=== PATIENT | female | born 1975 | race Caucasian/White ===

== ENCOUNTER 2022-05-21 14:50 | Outpatient (CLI) | payer BC, SELFPAY | END 2022-05-21 14:51 | disposition home or self-care (01) | LOC: NFLDREF 05-23 15:25 | PROVIDERS: PCP Family Medicine; Referring Provider Family Medicine; Visit Provider Obstetrics & Gynecology | DX: R53.83 Other fatigue (principal); F52.0 Hypoactive sexual desire disorder; R68.89 Other general symptoms and signs | CPT/HCPCS: 84270; 84402; 84403; 84443 ==

== ENCOUNTER 2023-03-13 07:37 | Outpatient (CLI) | payer BC, SELFPAY ==
--- NOTE | 2023-03-13 07:45 | CRLHL7_ITS ---
For Patients: As a result of the Cures Act, medical imaging exams and procedure reports are released immediately into your electronic medical record. You may view this report before your referring provider. If you have questions, please contact your health care provider. BILATERAL SCREENING MAMMOGRAM WITH COMPUTER-AIDED DETECTION AND TOMOSYNTHESIS TECHNIQUE: CC and MLO views were obtained. These mammographic images have been obtained using full-field digital technique. These mammographic images were interpreted with the benefit of computer-aided detection. Breast Tomosynthesis was used in this interpretation. COMPARISON FILM: 07/02/21, 01/01/21, 09/21/19. FINDINGS: The breasts are almost entirely fatty IMPRESSION: There is no radiographic evidence for malignancy. ASSESSMENT: BI-RADS Category 1: Negative RECOMMENDATION: Routine screening mammogram in 1 year. A lay language report of this examination will be provided to the patient. Efrem Pedro M.D. Diagnostic Radiologist [email or web address] Transcribed: 4:31 p.mNeeru ramirez/Dictated by: Efrem Pedro MD @ 03/18/2023 12:39:00 PM (Electronically Signed)
== END 2023-03-13 07:38 | disposition home or self-care (01) ==
LOC: MAMMO 07:39
PROVIDERS: PCP Family Medicine; Visit Provider Obstetrics & Gynecology
DX: Z12.31 Encounter for screening mammogram for malignant neoplasm of breast (principal)
CPT/HCPCS: 77063; 77067

== ENCOUNTER 2023-07-06 08:09 | Outpatient (CLI) | payer BC, SELFPAY ==
--- NOTE | 2023-07-06 08:45 | W.ANESCHARGE ---
Anesthesia Charges Start Date/Time Anesthesia Start Date: 07/06/23 Anesthesia Start Time: 08:55 Stop Date/Time Anesthesia Stop Date: 07/06/23 Anesthesia Stop Time: 09:36
--- NOTE | 2023-07-06 10:20 | W.ANESCHARGE ---
Anesthesia Charges Start Date/Time Anesthesia Start Date: 07/06/23 Anesthesia Start Time: 08:55 Stop Date/Time Anesthesia Stop Date: 07/06/23 Anesthesia Stop Time: 09:36
== END 2023-07-06 08:10 | disposition home or self-care (01) ==
LOC: OP CLINIC 08:10
PROVIDERS: PCP Family Medicine; Visit Provider Surgery
DX: Z12.11 Encounter for screening for malignant neoplasm of colon (principal); K63.5 Polyp of colon; R19.7 Diarrhea, unspecified
CPT/HCPCS: 45380; 45385; 811; 88305; J2704

== ENCOUNTER 2023-08-11 09:20 | Outpatient (CLI) | payer BC, SELFPAY ==
--- NOTE | 2023-08-11 09:45 | CRLHL7_ITS ---
For Patients: As a result of the Century Cures Act, medical imaging exams and procedure reports are released immediately into your electronic medical record. You may view this report before your referring provider. If you have questions, please contact your health care provider. DIGITAL DIAGNOSTIC BILATERAL MAMMOGRAM USING TOMOSYNTHESIS AND COMPUTER-AIDED DETECTION LEFT AXILLARY ULTRASOUND CLINICAL HISTORY: LEFT breast/axillary swelling. COMPARISON: 03/13/23, 01/01/21, 02/26/18. TECHNIQUE: Digital BILATERAL mammogram in four projections with computer-aided detection. Tomosynthesis was used in this interpretation. Real-time ultrasound imaging of LEFT breast with imaging documentation. BREAST COMPOSITION: There are areas of scattered fibroglandular density. FINDINGS: 3D CC/MLO bilateral mammogram images submitted. No suspicious masses or architectural distortion. No suspicious calcifications or adenopathy. Targeted LEFT axillary ultrasound performed. Normal subcutaneous tissues are present. No adenopathy or fluid collection. No suspicious mass. IMPRESSION: No evidence of malignancy. RECOMMENDATIONS: Annual bilateral screening mammography. Results and recommendations discussed with the patient. BI-RADS Category 2: Benign A lay language report of this examination will be provided to the patient. Dictated by Efrem Pedro MD @ 08/11/2023 10:57:36 AM jj/Dictated by: Efrem Pedro MD @ 08/11/2023 10:57:00 AM (Electronically Signed)
--- NOTE | 2023-08-11 10:15 | CRLHL7_ITS ---
For Patients: As a result of the Cures Act, medical imaging exams and procedure reports are released immediately into your electronic medical record. You may view this report before your referring provider. If you have questions, please contact your health care provider. PLEASE SEE DIGITAL DIAGNOSTIC BILATERAL MAMMOGRAM PERFORMED SAME DAY [email or web address] [email or web address]/Dictated by: Efrem Pedro MD @ 08/11/2023 11:48:00 AM (Electronically Signed)
== END 2023-08-11 09:21 | disposition home or self-care (01) ==
LOC: MAMMO 09:20
PROVIDERS: PCP Family Medicine; Visit Provider Obstetrics & Gynecology
DX: N64.4 Mastodynia (principal)
CPT/HCPCS: 76882; 77066; G0279

== ENCOUNTER 2024-01-31 09:08 | Emergency (ER) | payer BC, SELFPAY ==
--- OUTSIDE RECORDS SUMMARY | 2024-01-31 09:11 | XMS_ITS | Clinical Summary ---
Author Organization [facility] Address [place], [place] [address] Care Team Providers Care Employment Law Specialist Name Role Phone Jaison Hylton MD Primary Care Provider + [phone] Allergies No known active allergies Medications Medication Sig Dispensed Refills Start Date End Date Status albuterol HFA (PRO-AIR; VENTOLIN; PROVENTIL) 90 mcg/actuation inhalerIndications:SO B (shortness of breath) Inhale 1-2 Puffs by mouth every 4 hours if needed for Shortness of Breath 1st choice. 1 Each 1 05/28/2021 Active Active Problems No known active problems Social History Tobacco Use Types Packs/Day Years Used Date Smoking Tobacco: Former Cigarettes 0.5 10 1 - 11/30/2006 Smokeless Tobacco: Never Tobacco Cessation:Counseling Given: Yes Alcohol Use Standard Drinks/Week Comments Yes 0 (1 standard drink = 0.6 oz pur e alcohol) one drink 3-4 nights a week Social Connections Answer Date Recorded Frequency of Communication with Friends and Fami ly Not on file 05/28/2021 Sex and Gender Information Value Date Recorded Sex Assigned at Not on file Gender Identity Not on file Sexual Orientation Not on file Obstetrics History Last Filed Vital Signs Vital Sign Reading Time Taken Comments Blood Pressure 122/79 05/28/2021 1:57 PM CDT Pulse 75 05/28/2021 1:57 PM CDT Temperature 36.8 C (98.2 F) 05/28/2021 1:57 PM CDT Respiratory Rate 12 12/17/2006 2:29 PM CDT Oxygen Saturation 96% 05/28/2021 1:57 PM CDT Inhaled Oxygen Concentration - - Weight 83.6 kg (184 lb 6.4 oz) 12/17/2006 2:29 P M CDT Height - - Body Mass Index - - Plan of Treatment Health Maintenance Due Date Last Done Comments Tdap 02/05/1987 Depression screening for age 12+ 1988 HIV for age 15-65 02/05/1991 BMI (ht and wt on same day) for age 18+ 02/05/1994 Hepatitis C screening for age 18-79 02/05/1994 Tetanus booster 1996 Colonoscopy through age 75 02/05/2021 Lipids for age 45-75 02/05/2021 Mammogram for age 45-75 02/05/2021 COVID-19 vaccine series ( season) 2023 05/31/2020, 05/11/2020 Influenza for age 9-49 11/01/2023 Pap test for age 21-65 01/23/2024 , 01/22/2021, 09/18/2014, Additional history exists Pneumococcal series for age 6-64 Aged Out No longer eligible based on patient's age to complete this topic Procedures Procedure Name Priority Date/Time Associated Diagnosis Comments HPV HIGH RISK Routine 01/22/2021 9:45 AM WHITEWATER RAFTING GUIDE from Last 3 Months or Most Recently Relevant to Health Maintenance Results * HPV HIGH RISK (01/22/2021 9:45 AM WHITEWATER RAFTING GUIDE) TYPE 16 Negative Negative 01/28/2021 11:15 AM WHITEWATER RAFTING GUIDE [facility] TYPE 18 Negative Negative 01/28/2021 11:15 AM WHITEWATER RAFTING GUIDE [facility] OTHER HIGH RISK TYPES Negative Negative 01/28/2021 11:15 AM [facility] Other (Cervical/Vagina l) 01/22/2021 9:45 AM WHITEWATER RAFTING GUIDE 01/23/2021 9:47 AM WHITEWATER RAFTING GUIDE [facility]AL LAB[facility]AT[facility] - 01/28/2021 11:15 AM WHITEWATER RAFTING GUIDE HPV types 16, 18, 31, 33, 35, 39, 45, 51, 52, 56, 58, 59, 66 and 68 DNA were undetectable or below the pre-set threshold. Methodology: Helena Ihsan 4800 HPV Test Karlie Mercedes MD MICROBIOLOGY [facility] LABORATORY-CENTRAL LABORATORY [address] [place] [address], from Last 3 Months or Most Recently Relevant to Health Maintenance Care Teams Employment Law Specialist Relationship Specialty Start Date End Date Jaison Hylton MD [address] [place] [address] PCP - General 11/12/06
[2024-01-31 09:14] VITALS: BP 97/68; PULSE 99; RESP 16; TEMP 35.9; O2SAT 96; BMI 35.4
--- NOTE | 2024-01-31 09:51 | CRLHL7_ITS ---
For Patients: As a result of the Century Cures Act, medical imaging exams and procedure reports are released immediately into your electronic medical record. You may view this report before your referring provider. If you have questions, please contact your health care provider. Indication: Shortness of breath. Technique: Two view(s) of the chest. Comparison: 12/18/2022. Findings: Normal cardiomediastinal silhouette and pulmonary vasculature. Azygous lobe. Lungs are well inflated and clear. No focal consolidation, pleural effusion or pneumothorax. No acute osseous abnormality. Impression: No acute cardiopulmonary abnormality identified. Dictated by Elda Albarran MD @ 01/31/2024 10:11:15 AM (Electronically Signed)
--- NOTE | 2024-01-31 10:01 | ED.GENADULT ---
HPI - General Adult General Chief complaint: Dizziness/Vertigo Stated complaint: Possible meningitis Time Seen by Provider: 01/31/24 09:33 Source: patient Mode of arrival: ambulatory Limitations: no limitations History of Present Illness HPI narrative: 48-year-old female coming in today because she is not feeling well. Patient states that 4 days ago she started feeling unwell with cough, fatigue and fever. She states that the fever did not return after the 1st day and she thought she felt better on day 3. Then today she felt very achy. The achiness extends across her entire back into her head and neck. She has little appetite but has been trying to drink plenty of water. She denies chest pain. She is not short of breath. She has continued to cough. No abdominal pain or urinary symptoms. She denies diarrhea. She denies any skin rashes. She denies neurologic deficits. She states that today she got up to take a shower and when she was in the shower she started having tunnel vision and her vision started to black out so she called her and when her got to her she had sat down then he states that she passed out for about 20 seconds or so. When she woke up she felt tired and she just feels generally unwell. Patient takes omeprazole, control, monthly ketamine infusions. Related Data Home Medications ?Medication ?Instructions ?Recorded ?Confirmed cholecalciferol (vitamin D3) 25 25 mcg PO QDAY 05/13/22 01/31/24 mcg (1,000 unit) capsule ibuprofen 200 mg tablet (Advil) 200 mg PO Q6H PRN 05/13/22 01/31/24 ketamine 50 mg/5 mL (10 mg/mL) in 5 ml IV Q2W 12/18/22 01/31/24 sodium chlor,iso-osmotic IV syringe Previous Rx's ?Medication ?Instructions ?Recorded norethindrone 1 mg-ethinyl 1 tab PO QDAY #84 tabs 08/10/23 estradiol 20 mcg (21)-iron 75 mg (7) tablet (Loestrin Fe 03/21 (28-Day)) omeprazole 20 mg capsule,delayed 20 mg PO QDAY #30 caps 12/14/23 release albuterol sulfate 90 mcg/actuation 2 puff inhalation Q4-6H PRN 12/22/23 aerosol inhaler shortness of breath or wheezing #8.5 grams Allergies Allergy/AdvReac Type Severity Reaction Status Date / Time No Known Drug Allergies Allergy Verified 01/31/24 09:23 Review of Systems Status of ROS: Reports: 10 or more systems reviewed and unremarkable except as noted in History and below [facility] Plantar fasciitis ?M72.2 - Plantar fascial fibromatosis (ICD-10) Perimenopause ?N95.1 - Menopausal and female climacteric states (ICD-10) Hypoactive sexual desire ?F52.0 - Hypoactive sexual desire disorder (ICD-10) GERD (gastroesophageal reflux disease) ?K21.9 - Gastro-esophageal reflux disease without esophagitis (ICD-10) Posttraumatic stress disorder ?F43.10 - Post-traumatic stress disorder, unspecified (ICD-10) Pelvic floor dysfunction ?M62.89 - Other specified disorders of muscle (ICD-10) Endometriosis determined by laparoscopy (2005) ?N80.9 - Endometriosis, unspecified (ICD-10) Anxiety and depression ?F41.9 - Anxiety disorder, unspecified (ICD-10) ?F32.A - Depression, unspecified (ICD-10) Surgical History Normal spontaneous vaginal delivery ?O80 - Encounter for full-term uncomplicated delivery (ICD-10) History of hemorrhoidectomy (02/27/21) ?Z98.890 - Other specified postprocedural states (ICD-10) History of laparotomy (2005) ?Z98.890 - Other specified postprocedural states (ICD-10) Family History Daughter Diabetes Albinism Aunt Breast cancer Father Alcohol dependence Depression Hayde-Danlos syndrome Son Albinism Mother Depression Anxiety Maternal Grandfather Coronary artery disease Other Short chain acyl-CoA dehydrogenase deficiency Social History Narrative: 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 Alert and oriented. Answers questions appropriately. Mood and affect are appropriate. Thoughts are goal oriented and rational. No tangential or magical thinking noted. Patient speaks in full sentences without needing to catch her breath. Speech is not slurred or pressured. She does sound congested. HEENT: Normocephalic atraumatic. Pupils are equally round reactive to light. Extraocular muscles are intact. Conjunctivae are moist without any icterus noted. Moist mucous membranes. Posterior pharynx is normal. Neck is soft without any lymphadenopathy or thyromegaly. No masses are appreciated. Cardiovascular: Heart is regular rate and rhythm S1 and S2 are present without any murmurs. Lungs: Clear to auscultation bilaterally no wheezes rhonchi or rales are appreciated. Patient takes deep breaths without any discomfort. Abdomen: Soft and nontender nondistended with normal bowel sounds. No guarding or rebound. No masses or organomegaly appreciated. Extremities: Bilateral lower extremities are without edema. Normal DP and PT pulses. Skin: Well perfused without any obvious rashes. Back: Normal appearance. No significant pain with movement at the cervical spine. Patient is able to go from a lying to a sitting position without any difficulty. Const: Vital Signs, click to edit/add: Vital Signs - 24 hr 01/31/24 09:14 Temperature 96.6 F L Pulse Rate [Left P ulse Oximeter] 99 Respiratory Rate 16 Blood Pressure [Ri ght Upper Arm] 97/68 Pulse Oximetry 96 Oxygen Delivery Me thod Room Air Course Course ED Course: Given her episode of syncope we did go ahead and proceed with an EKG which, read by me, shows normal sinus rhythm with a pulse of 82. Chest x-ray, read by me, does not show any acute pathology. CBC is unremarkable. Normal lactate. Negative mono. Chemistries unremarkable. Triple swab positive for influenza A. Vital Signs Vital signs: Initial Vital Signs Temperature 96.6 F L 01/31/24 09:14 Temperature Source Temporal Artery Scan 01/31/24 09:14 Pulse Rate 99 01/31/24 09:14 Pulse Rhythm Regular 01/31/24 09:14 Pulse Strength 3+ Normal 01/31/24 09:14 Respiratory Rate 16 01/31/24 09:14 Blood Pressure 97/68 01/31/24 09:14 Blood Pressure Mean 77 12/01/24 09:14 Blood Pressure Position Sitting 01/31/24 09:14 Pulse Oximetry 96 01/31/24 09:14 Oxygen Delivery Method Room Air 01/31/24 09:14 Vital Signs Temperature 96.6 F L 01/31/24 09:14 Pulse Rate 99 01/31/24 09:14 Respiratory Rate 16 01/31/24 09:14 Blood Pressure 97/68 01/31/24 09:14 Pulse Oximetry 96 01/31/24 09:14 Oxygen Delivery Method Room Air 01/31/24 09:14 Temperature 96.6 F L 01/31/24 09:14 Pulse Rate 99 01/31/24 09:14 Respiratory Rate 16 01/31/24 09:14 Blood Pressure 97/68 01/31/24 09:14 Pulse Oximetry 96 01/31/24 09:14 Oxygen Delivery Method Room Air 01/31/24 09:14 Medical Decision Making MDM Narrative Medical decision making narrative: 48-year-old female with influenza. We discussed symptomatic treatment. She is really out of the window for treatment with Tamiflu and she states that Tamiflu is made her vomit in the past. I did not give her IV fluids today as she has been drinking without difficulty. Encouraged her to continue doing so, rest. We discussed ibuprofen and Tylenol for body aches and fevers. Patient had no other questions. Lab Data Lab results reviewed: Yes I reviewed the patient's lab results Labs: Lab Results 01/31/24 01/31/24 Range/Units 10:08 10:49 WBC 6.57 (4.50-11.00) K/uL RBC 5.32 H (4.00-5.20) m/uL Hgb 14.4 (12.0-16.0) gm/dL Hct 44.8 (33.0-51.0) % MCV 84 (80-100) fL MCH 27 (26-34) pg MCHC 32 (32-36) gm/dL RDW Coeff of [place] 13.2 (11.5-15.5) % Plt Count 258 (140-440) K/uL Neut % (Auto) 72.3 H (42.0-72.0) % Lymph % (Auto) 18.9 L (20-44) % [place] % (Auto) 7.8 (0.0-11.0) % Eos % (Auto) 0.8 (0.0-7.0) % Baso % (Auto) 0.0 (0.0-3.0) % Neut # (Auto) 4.80 (1.7-7.0) K/uL Lymph # (Auto) 1.20 (0.90-2.90) K/uL [place] # (Auto) 0.50 (0.00-0.90) K/UL Eos # (Auto) 0.05 (0.00-0.50) K/uL Baso # (Auto) 0.00 (0.00-0.30) K/uL Abs Immat Gran (auto) 0.01 (0.00-0.30) K/uL Imm/Tot Granulo (auto) 0.2 % Sodium 136 (135-149) mmol/L Potassium 3.8 (3.6-5.1) mmol/L Chloride 105 (96-114) mmol/L Carbon Dioxide 22 (20-32) mmol/L Anion Gap 9 (7-15) mEq/L BUN 8 (5-24) mg/dL Creatinine 0.8 (0.5-1.5) mg/dL Estimated Creat Clear 84.54 Estimated GFR 91 ml/min Glucose 124 H (60-115) mg/dL Lactate 0.8 (0.5-1.9) mmol/L Calcium 9.2 (8.4-10.6) mg/dL Total Bilirubin 0.2 (0.1-1.5) mg/dL Direct Bilirubin 0.1 (0.0-0.5) mg/dL AST 17 (12-35) U/L ALT 10 (4-35) U/L Alkaline Phosphatase 68 (40-150) U/L C-Reactive Protein 5.4 H (0.5-1.0) mg/dL Total Protein 7.6 (6.0-8.3) g/dL Albumin 4.2 (3.3-5.0) g/dL SARS-CoV-2 (PCR) Negative SARS-CoV-2 (Negative) Monoscreen Negative (Negative) Influenza Type A (PCR) POSITIVE PCR FLU A A (Negative) Influenza Type B (PCR) Negative PCR FLU B (Negative) RSV (PCR) Negative PCR RSV (Negative) Imaging Data Chest x-ray: Attestation: I have reviewed the pertinent imaging results. Radiologist's impression: Two view(s) of the chest. Comparison: 12/18/2022. Findings: Normal cardiomediastinal silhouette and pulmonary vasculature. Azygous lobe. Lungs are well inflated and clear. No focal consolidation, pleural effusion or pneumothorax. No acute osseous abnormality. Impression: No acute cardiopulmonary abnormality identified. ECG Data Attestation: I personally reviewed and interpreted this ECG as follows: Discharge Plan Discharge Clinical Impression: Influenza A Patient Disposition: Home, Self-Care Instructions: Influenza (DC) Prescriptions: No Action ketamine in NaCl, iso-osmotic 50 mg/5 mL (10 mg/mL) syringe 5 ml IV Q2W norethindrone-e.estradiol-iron [Loestrin Fe 03/21 (28-Day)] 1 mg-20 mcg (21)/75 mg (7) tablet 1 tab PO QDAY Qty: 84 4RF ibuprofen [Advil] 200 mg tablet 200 mg PO Q6H PRN cholecalciferol (vitamin D3) 25 mcg (1,000 unit) capsule 25 mcg PO QDAY albuterol sulfate 90 mcg/actuation HFA aerosol inhaler 2 puff inhalation Q4-6H PRN (Reason: shortness of breath or wheezing) Qty: 8.5 1RF omeprazole 20 mg capsule,delayed release(DR/EC) 20 mg PO QDAY Qty: 30 0RF Follow Up/Referrals: Efrem Joseph MD [Primary Care Provider] - Stand Alone Forms: [email or web address] Info Instructions
[2024-01-31 10:14] LABS: Eosinophils Absolute Auto 0.05 K/uL (0.00-0.50); Eosinophils Percent Auto 0.8 % (0.0-7.0); Hematocrit 44.8 % (33.0-51.0); Hemoglobin* 14.4 gm/dL (12.0-16.0); Immature Granulocytes Abs Auto 0.01 K/uL (0.00-0.30); Immature Granulocytes Pct Auto 0.2 %; Lactate* 0.8 mmol/L (0.5-1.9); Lymphocytes Percent Auto 18.9 % (20-44); Mean Corpuscular HGB Conc 32 gm/dL (32-36); Mean Corpuscular Hemoglobin 27 pg (26-34); Mean Corpuscular Volume 84 fL (80-100); Monocytes Percent Auto 7.8 % (0.0-11.0); Neutrophils Percent Auto 72.3 % (42.0-72.0); Platelet Count* 258 K/uL (140-440); RDW Coefficient of Variation % 13.2 % (11.5-15.5); Red Blood Count 5.32 m/uL (4.00-5.20); White Blood Count* 6.57 K/uL (4.50-11.00)
--- OUTSIDE RECORDS SUMMARY | 2024-01-31 10:20 | XMS_ITS | Clinical Summary ---
Author Organization [facility] Address [place], [place] [address] Care Team Providers Care Home Care Coordinator Name Role Phone Jaison Hylton MD Primary Care Provider + [phone] Allergies No known active allergies Medications Medication [...] HPV HIGH RISK Routine 01/22/2021 9:45 AM VENDER from Last 3 Months or Most Recently Relevant to Health Maintenance Results * HPV HIGH RISK (01/22/2021 9:45 AM VENDER) TYPE 16 Negative Negative 01/28/2021 11:15 AM VENDER [facility] TYPE 18 Negative Negative 01/28/2021 11:15 AM VENDER [facility] OTHER HIGH RISK TYPES Negative Negative 01/28/2021 11:15 AM [facility] Other (Cervical/Vagina l) 01/22/2021 9:45 AM VENDER 01/23/2021 9:47 AM VENDER [facility]-CENTRAL LABORATORY - 01/28/2021 11:15 AM VENDER HPV types 16, 18, 31, 33, 35, 39, 45, 51, 52, 56, 58, 59, 66 and 68 DNA were undetectable or below the pre-set threshold. Methodology: Helena Ihsan 4800 HPV Test Karlie Mercedes MD MICROBIOLOGY [facility] LABORATORY-CENTRAL LABORATORY [address] [place] [address], from Last 3 Months or Most Recently Relevant to Health Maintenance Care Teams Home Care Coordinator Relationship Specialty Start Date End Date Jaison Hylton MD [address] [place] [address] PCP - General 11/12/06
[2024-01-31 10:23] LABS: Slide Review Reflex No
[2024-01-31 10:29] LABS: Mono Screen* Negative (Negative)
[2024-01-31 10:38] LABS: Chloride* 105 mmol/L (96-114); Potassium* 3.8 mmol/L (3.6-5.1); Sodium* 136 mmol/L (135-149)
[2024-01-31 10:39] LABS: Albumin* 4.2 g/dL (3.3-5.0)
[2024-01-31 10:41] LABS: Anion Gap 9 mEq/L (7-15); Blood Urea Nitrogen* 8 mg/dL (5-24); Carbon Dioxide* 22 mmol/L (20-32); Creatinine* 0.8 mg/dL (0.5-1.5); Est. Creatinine Clearance* 84.54; Estimated Glomerular Filt Rate 91 ml/min
[2024-01-31 10:42] LABS: Alanine Aminotransferase* 10 U/L (4-35); Alkaline Phosphatase* 68 U/L (40-150); Aspartate Amino Transferase* 17 U/L (12-35); Bilirubin Direct* 0.1 mg/dL (0.0-0.5); Bilirubin Total* 0.2 mg/dL (0.1-1.5); Calcium* 9.2 mg/dL (8.4-10.6); Glucose* 124 mg/dL (60-115); Total Protein* 7.6 g/dL (6.0-8.3)
[2024-01-31 10:44] LABS: C Reactive Protein* 5.4 mg/dL (0.5-1.0)
[2024-01-31 11:31] LABS: PCR FLU A POSITIVE PCR FLU A (Negative); PCR FLU B Negative PCR FLU B (Negative); PCR RSV Negative PCR RSV (Negative); SARS PCR* Negative SARS-CoV-2 (Negative)
== END 2024-01-31 11:54 | disposition home or self-care (01) ==
PROVIDERS: Emergency Provider Family Medicine; PCP Family Medicine
DX: J10.1 Influenza due to other identified influenza virus with other respiratory manifestations (principal)
CPT/HCPCS: 36415; 71046; 80048; 80076; 83605; 85025; 86140; 86308; 87631; 93005; 99284

== ENCOUNTER 2024-03-21 14:33 | Outpatient (CLI) | payer BC, SELFPAY ==
--- NOTE | 2024-03-21 14:40 | CRLHL7_ITS ---
For Patients: As a result of the Century Cures Act, medical imaging exams and procedure reports are released immediately into your electronic medical record. You may view this report before your referring provider. If you have questions, please contact your health care provider. BILATERAL SCREENING MAMMOGRAM WITH COMPUTER-AIDED DETECTION AND TOMOSYNTHESIS TECHNIQUE: CC and MLO views were obtained. These mammographic images have been obtained using full-field digital technique. These mammographic images were interpreted with the benefit of computer-aided detection. Breast Tomosynthesis was used in this interpretation. COMPARISON FILM: 08/11/23, 03/13/23, 01/01/21. FINDINGS: The breasts are almost entirely fatty. IMPRESSION: There is no radiographic evidence for malignancy. ASSESSMENT: BI-RADS Category 1: Negative RECOMMENDATION: Routine screening mammogram in 1 year. A lay language report of this examination will be provided to the patient. Gaston Beth M.D. Diagnostic/Nuclear Medicine Radiologist [email or web address]/[email or web address] SP/Dictated by: Gaston Beth MD @ 03/23/2024 12:15:00 PM (Electronically Signed)
== END 2024-03-21 14:34 | disposition home or self-care (01) ==
LOC: MAMMO 14:34
PROVIDERS: PCP Family Medicine; Visit Provider Obstetrics & Gynecology
DX: Z12.31 Encounter for screening mammogram for malignant neoplasm of breast (principal)
CPT/HCPCS: 77063; 77067

== ENCOUNTER 2024-04-08 15:10 | Outpatient (CLI) | payer BC, SELFPAY | END 2024-04-08 15:11 | disposition home or self-care (01) | PROVIDERS: PCP Family Medicine; Visit Provider Family Medicine | DX: E66.811 Obesity, class 1 (principal); R53.83 Other fatigue; R73.9 Hyperglycemia, unspecified; E55.9 Vitamin D deficiency, unspecified; F32.81 Premenstrual dysphoric disorder; N95.1 Menopausal and female climacteric states; F41.9 Anxiety disorder, unspecified; Z13.6 Encounter for screening for cardiovascular disorders | CPT/HCPCS: 80053; 80061; 82306; 84443 ==

== ENCOUNTER 2024-06-08 13:50 | Outpatient (CLI) | payer BC, SELFPAY ==
--- NOTE | 2024-06-08 14:00 | CRLHL7_ITS ---
For Patients: As a result of the Century Cures Act, medical imaging exams and procedure reports are released immediately into your electronic medical record. You may view this report before your referring provider. If you have questions, please contact your health care provider. CLINICAL HISTORY: abnormal uterine and vaginal bleeding TECHNIQUE: 2D aden scale and color Doppler images were acquired of the pelvis using a transvaginal approach. FINDINGS: On transvaginal imaging, the myometrium has a normal uniform echotexture. Uterus measures 6.3 x 3.3 x 4.5 cm. The endometrial lining appears normal and measures 5 mm in thickness. Ovaries not visualized. There are no suspicious fluid collections within the cul-de-sac. IMPRESSION: Endometrial thickness 5 millimeters. No endometrial fluid. No uterine fibroid. Dictated by Efrem Pedro MD @ 06/08/2024 3:17:00 PM (Electronically Signed)
== END 2024-06-08 13:51 | disposition home or self-care (01) ==
LOC: US 13:50
PROVIDERS: PCP Family Medicine; Visit Provider Obstetrics & Gynecology
DX: N93.9 Abnormal uterine and vaginal bleeding, unspecified (principal); R93.89 Abnormal findings on diagnostic imaging of other specified body structures
CPT/HCPCS: 76830

== ENCOUNTER 2024-11-24 15:10 | Emergency (ER) | payer BC, SELFPAY ==
[2024-11-24 15:25] VITALS: BP 145/82; PULSE 82; RESP 20; TEMP 36.3; O2SAT 98; BMI 36.5
--- OUTSIDE RECORDS SUMMARY | 2024-11-24 15:25 | XMS_ITS | Clinical Summary ---
Author Organization [facility] Address [address] [place] [id number] Care Team Providers Care Car Salesperson Name Role Phone Jaison Hylton MD Primary Care Provider Unava ilable Allergies No known active allergies Medications albuterol HFA (PRO-AIR; VENTOLIN; PROVENTIL) 90 mcg/actuation inhalerIndicati ons:SOB (shortness of breath) Inhale 1-2 Puffs by mouth every 4 hours if needed for Shortness of Breath 1st choice. 1 Each 1 2 Active Active Problems No known active problems [...] and Fami ly Not on file 05/28/2021 Comments No Sex and Gender Information Value Date Recorded Sex Assigned at Not on file Legal Sex Female 5:27 AM [employer]REL [employer] Gender Identity Not on file Sexual Orientation [...] Health Maintenance Due Date Last Done Comments Tetanus booster 02/05/1987 Depression screening for age 12+ 1988 HIV for age 15-65 02/05/1991 BMI (ht and wt on same day) for age 18+ 02/05/1994 Hepatitis C screening for age 18-79 02/05/1994 Hepatitis B series for 19+ (1 of 3 - 19+ 3-dose series) 02/05/1995 Colonoscopy through age 75 02/05/2021 Lipids for age 45-75 02/05/2021 Mammogram for age 45-75 02/05/2021 Pap test for age 21-65 01/23/2024 , 01/22/2021, 09/18/2014, Additional history exists COVID-19 vaccine series (2024- season) 2024 05/31/2020, 05/11/2020 Influenza Vaccine (#1) 2024 RSV vaccine for adults or (1 - 1-dose 75+ series) 02/05/2051 Pneumococcal series for age 6-49 Aged Out No longer eligible based on patient's age to complete this topic Procedures Procedure Name Priority Date/Time Associated Diagnosis Comments HPV HIGH RISK Routine 01/22/2021 9:45 AM [employer] HAND from Last 3 Months or Most Recently Relevant to Health Maintenance Results * HPV HIGH RISK (01/22/2021 9:45 AM [employer] PR[employer] HAND) TYPE 16 Negative Negative 01/28/2021 11:15 AM MANDREL PR[employer] HAND [facility] TYPE 18 Negative Negative 01/28/2021 11:15 AM M[employer]REL PR[employer] HAND [facility] OTHER HIGH RISK TYPES Negative Negative 01/28/2021 11:15 AM M[employer] PR[employer] HAND [facility] Other (Cervical/Vagina l) 01/22/2021 9:45 AM [employer] HAND 01/23/2021 9:47 AM [employer] PR[employer] HAND Narrative [facility] - 01/28/2021 11:15 AM [employer] HPV types 16, 18, 31, 33, 35, 39, 45, 51, 52, 56, 58, 59, 66 and 68 DNA were undetectable or below the pre-set threshold. Methodology: Helena Ihsan 4800 HPV Test us Karlie Mercedes MD MICROBIOLOGY Final Res ult [facility] [address] [place] [address], [place] from Last 3 Months or Most Recently Relevant to Health Maintenance Insurance [facility] Care Teams Car Salesperson Relationship Specialty Start Date End Date Jaison Hylton MD PCP - General 11/12/06
--- NOTE | 2024-11-24 15:48 | CRLHL7_ITS ---
For Patients: As a result of the Century Cures Act, medical imaging exams and procedure reports are released immediately into your electronic medical record. You may view this report before your referring provider. If you have questions, please contact your health care provider. INDICATION: Right COMPARISON: None available. 2nd toe injury. TECHNIQUE: Three views of the right 2nd toe. FINDINGS: Mineralization: Normal. Alignment: Normal. Bones and Joints: Obliquely oriented medially displaced, by the width of the cortex, fracture of the distal shaft of the right 2nd proximal phalanx. Incidental note is made of a bipartite sesamoid underlying the 4th metatarsal head. Soft Tissues: Unremarkable. IMPRESSION: Obliquely oriented medially displaced, by the width of the cortex, fracture of the distal shaft of the right 2nd proximal phalanx. Dictated by David Herring MD @ 11/24/2024 4:20:34 PM (Electronically Signed)
--- NOTE | 2024-11-24 15:48 | ED.LOWEXIN ---
HPI - Extremity Injury (Lower) General Chief Complaint: Extremity Pain/Injury, Lower Stated Complaint: R foot broken/dislocated toe, triage nurse sent Time Seen by Provider: 11/24/24 15:20 History of Present Illness HPI Narrative: This 49-year-old female comes in with an injury to her right foot. She stubbed her toes about an hour prior to arrival. She reported pain in the great toe and the 2nd toe and feels that the alignment of her 2nd toe as been altered. She does not report any other injury. Related Data Home Medications ?Medication ?Instructions ?Recorded ?Confirmed cholecalciferol (vitamin D3) 25 25 mcg PO QDAY 05/13/22 08/09/24 mcg (1,000 unit) capsule ibuprofen 200 mg tablet (Advil) 200 mg PO Q6H PRN 05/13/22 11/24/24 ketamine 50 mg/5 mL (10 mg/mL) in 5.5 ml IV Q4W 04/08/24 11/24/24 0.9 % sodium chloride IV syringe Previous Rx's ?Medication ?Instructions ?Recorded albuterol sulfate 90 mcg/actuation 2 puff inhalation Q4-6H PRN 04/14/24 aerosol inhaler shortness of breath or wheezing #8.5 grams norethindrone 1 mg-ethinyl 1 tab PO QDAY #84 tabs 04/14/24 estradiol 20 mcg (21)-iron 75 mg (7) tablet (Loestrin Fe 03/21 (28-Day)) omeprazole 20 mg capsule,delayed 20 mg PO .every other day #90 caps 10/06/24 release Allergies Allergy/AdvReac Type Severity Reaction Status Date / Time No Known Drug Allergies Allergy Verified 11/24/24 15:23 Review of Systems Status of ROS: Reports: 10 or more systems reviewed and unremarkable except as noted in History and below Narrative: Constitutional: No fevers, no weight gain or loss. Eyes: No discharge. No vision changes. HENT: No congestion, no sore throat, no ear pain. Cardiovascular: No chest pain, no palpitations. Respiratory: No shortness of breath, no wheezes, no cough. Gastrointestinal: No abdominal pain, no vomiting, no diarrhea. Genitourinary: No dysuria, no hematuria. Musculoskeletal: Right foot injury as described above. Skin: No rashes, no pruritis. Neurological: No dizziness, weakness, sensory change, speech change. Endo/Heme/Allergies: No bruising or bleeding. No polydipsia. Pysch: no suicidality, no anxiety, no insomnia. All other systems reviewed and are negative. [facility] Medical History (Updated 11/24/24 @ 16:25 by Jeramie Nicole MD) PMDD (premenstrual dysphoric disorder) ?F32.81 - Premenstrual dysphoric disorder (ICD-10) Plantar fasciitis ?M72.2 - Plantar fascial fibromatosis (ICD-10) Perimenopause ?N95.1 - Menopausal and female climacteric states (ICD-10) Hypoactive sexual desire ?F52.0 - Hypoactive sexual desire disorder (ICD-10) GERD (gastroesophageal reflux disease) ?K21.9 - Gastro-esophageal reflux disease without esophagitis (ICD-10) Posttraumatic stress disorder ?F43.10 - Post-traumatic stress disorder, unspecified (ICD-10) Pelvic floor dysfunction ?M62.89 - Other specified disorders of muscle (ICD-10) Endometriosis determined by laparoscopy (2005) ?N80.9 - Endometriosis, unspecified (ICD-10) Anxiety and depression ?F41.9 - Anxiety disorder, unspecified (ICD-10) ?F32.A - Depression, unspecified (ICD-10) Surgical History (Updated 04/08/24 @ 14:58 by Pat Braun MD) Normal spontaneous vaginal delivery ?O80 - Encounter for full-term uncomplicated delivery (ICD-10) History of laparotomy (2005) ?Z98.890 - Other specified postprocedural states (ICD-10) Family History (Updated 04/08/24 @ 16:27 by Pat Braun MD) Daughter Diabetes Albinism Type 1 diabetes mellitus Aunt Breast cancer, Onset Age: 55 Father Alcohol dependence Hayde-Danlos syndrome Depression with anxiety Son Albinism Mother Anxiety Depression with anxiety Macular degeneration Maternal Grandfather Myocardial infarction, Onset Age: 76 Brother Depression with anxiety Other Short chain acyl-CoA dehydrogenase deficiency Social History (Updated 04/14/24 @ 15:04 by Aura Cantu ~ [facility]) Narrative: , 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, 3 kids exercise 3 to 4 times a week 1 hour walking biking weight skiing Nonsmoker, quit 2006, history of 10 pack years 6-8 glasses of wine per week She owns [employer] She has a master's degree She exercises 3 to 4 times a week She does not smoke she drinks 1-2 glasses of wine a day She does not use recreational drugs What is your current living situation?: I presently have a place to live Problems where you live: no known problems In the past 12 months, utilities in danger of being shut off: no In past 12 months, lack of transportation kept you from medical appts, meetings, work, or getting things needed for daily living: no In the past 12 mos, have been you worried that your food would run out before you had money to buy more?: never true In the past 12 mos, the food you bought just didn't last and you didn't have money to buy more?: never true Smoking Status: Former smoker How often do you have a drink containing alcohol: never How often do you have six or more drinks on one occasion: Never AUDIT-C Alcohol total score: 0 Non-prescribed substance use: denies use How often does anyone, including family, friends and others, physically hurt you: never How often does anyone, including family, friends and others, insult or talk down to you: never How often does anyone, including family, friends and others, threaten you with harm: never How often does anyone, including family, friends and others, scream or curse at you: never service: No Exam Narrative: Exam Narrative: Constitutional: Well-developed, well-nourished, no acute distress. HEENT: Normocephalic, atraumatic. Neck: Normal range of motion. Nontender. Supple. Heart: Intact distal pulses. Lungs: No chest discomfort. No wheezes, rhonchi, or rales. Abdomen: Nontender. Back: Normal range of motion. Extremities: Pain in the right great toe and 2nd toe. The 2nd toes may be a bit deviated away from the great toe. Skin: Intact. No rash. Warm. No erythema or pallor. Neurologic: No altered sensation. No weakness. Alert and oriented. Psychiatric: No suicidality. No anxiety or depression. No insomnia. Nursing notes and vitals signs are reviewed. Const: Vital Signs, click to edit/add: Vital Signs - 24 hr 11/24/24 15:25 Temperature 97.3 F L Pulse Rate [Pulse Oximeter] 82 Respiratory Rate 20 Blood Pressure [Ri ght Upper Arm] 145/82 H Pulse Oximetry 98 Oxygen Delivery Me thod Room Air Course Vital Signs Vital signs: Initial Vital Signs Temperature 97.3 F L 11/24/24 15:25 Temperature Source Temporal Artery Scan 11/24/24 15:25 Pulse Rate 82 11/24/24 15:25 Respiratory Rate 20 11/24/24 15:25 Blood Pressure 145/82 H 11/24/24 15:25 Blood Pressure Mean 103 11/24/24 15:25 Pulse Oximetry 98 11/24/24 15:25 Oxygen Delivery Method Room Air 11/24/24 15:25 Vital Signs Temperature 97.3 F L 11/24/24 15:25 Pulse Rate 82 11/24/24 15:25 Respiratory Rate 20 11/24/24 15:25 Blood Pressure 145/82 H 11/24/24 15:25 Pulse Oximetry 98 11/24/24 15:25 Oxygen Delivery Method Room Air 11/24/24 15:25 Temperature 97.3 F L 11/24/24 15:25 Pulse Rate 82 11/24/24 15:25 Respiratory Rate 20 11/24/24 15:25 Blood Pressure 145/82 H 11/24/24 15:25 Pulse Oximetry 98 11/24/24 15:25 Oxygen Delivery Method Room Air 11/24/24 15:25 MDM - Extremity Injury (Lower) MDM Narrative Medical decision making narrative: This patient comes in with an injury to her right foot as described above. X-ray images show a oblique fracture of the 2nd toe. She does have some angulation that could be improved so I did place Coban to debi tape her 2nd toe with her great toe. This has improved her alignment back to what seems to be good anatomical position. I gave instructions regarding ambulating and recovery from this injury. Imaging Data XR R 2nd Toe: Radiologist's impression: Obliquely oriented medially displaced, by the width of the cortex, fracture of the distal shaft of the right 2nd proximal phalanx. Discharge Plan Discharge Clinical Impression: Fracture of toe Prescriptions: No Action ketamine in 0.9 % sod chloride 50 mg/5 mL (10 mg/mL) syringe 5.5 ml IV Q4W ibuprofen [Advil] 200 mg tablet 200 mg PO Q6H PRN cholecalciferol (vitamin D3) 25 mcg (1,000 unit) capsule 25 mcg PO QDAY norethindrone-e.estradiol-iron [Loestrin Fe 03/21 (28-Day)] 1 mg-20 mcg (21)/75 mg (7) tablet 1 tab PO QDAY Qty: 84 3RF albuterol sulfate 90 mcg/actuation HFA aerosol inhaler 2 puff inhalation Q4-6H PRN (Reason: shortness of breath or wheezing) Qty: 8.5 2RF omeprazole 20 mg capsule,delayed release(DR/EC) 20 mg PO .every other day Qty: 90 0RF Follow Up/Referrals: Pat Braun MD [Primary Care Provider, Family Practice]
== END 2024-11-24 16:40 | disposition home or self-care (01) ==
LOC: ED 15:53
PROVIDERS: Emergency Provider Emergency Medicine Emergency Medical Services; PCP Family Medicine
DX: S92.511A Displaced fracture of proximal phalanx of right lesser toe(s), initial encounter for closed fracture (principal)
CPT/HCPCS: 73660; 99283; 99284

== ENCOUNTER 2024-12-30 13:26 | Outpatient (CLI) | payer BC, SELFPAY | END 2024-12-30 13:27 | disposition home or self-care (01) | LOC: NFLDREF 13:29 | PROVIDERS: PCP Family Medicine; Visit Provider Obstetrics & Gynecology | DX: R23.2 Flushing (principal) | CPT/HCPCS: 84443 ==